=== PATIENT | male | born 1960 | race Caucasian/White ===

== ENCOUNTER → 2017-03-02 | Outpatient (CLI) | payer OTHER ==
[2017-03-02 08:38] LABS: MEAN CORPUSCULAR HEMOGLOBIN 32.5 pg (27.0-33.0); MEAN CORPUSCULAR HGB CONC 35.3 g/dl (32.0-36.5); MEAN CORPUSCULAR VOLUME 91.9 fl (80.0-96.0); RED CELL DISTRIBUTION WIDTH 12.7 % (11.5-14.5); WHITE BLOOD COUNT 4.3 K/mm3 (4.0-10.0)
[2017-03-02 08:45] LABS: ANION GAP 5 MEQ/L (8-16); AST/SGOT 25 U/L (15-37); BLOOD UREA NITROGEN 16 MG/DL (7-18); CARBON DIOXIDE LEVEL 29 MEQ/L (21-32); CHLORIDE LEVEL 107 MEQ/L (98-107); CREATININE FOR GFR 1.26 MG/DL (0.70-1.30); GLOMERULAR FILTRATION RATE > 60.0 (>56); GLUCOSE, FASTING 106 MG/DL (70-105); POTASSIUM SERUM 4.5 MEQ/L (3.5-5.1); SODIUM LEVEL 141 MEQ/L (136-145)
[2017-03-02 08:46] LABS: ALBUMIN 3.8 GM/DL (3.2-5.2); ALBUMIN/GLOBULIN RATIO 1.31 (1.00-1.93); ALKALINE PHOSPHATASE 79 U/L (45-117); ALT/SGPT 41 U/L (12-78); BILIRUBIN,TOTAL 0.7 MG/DL (0.2-1.0); CHOLESTEROL LEVEL 129 MG/DL (<200); TOTAL PROTEIN 6.7 GM/DL (6.4-8.2); TRIGLYCERIDES LEVEL 310 MG/DL (<150)
--- NOTE | 2017-03-02 10:16 | REP ---
Chest two views HISTORY: Annual physical Comparison: 01/07/2016 The lungs are clear. The heart is normal in size. The pulmonary vasculature is normal in appearance. The bony structure is intact. IMPRESSION: No acute disease. Signed by Alistair Siddiqui MD 03/02/2017 10:06 A
--- NOTE | 2017-03-03 07:58 | ECGEPIP ---
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
== END ==
LOC: M LAB 07:33
PROVIDERS: ATTEND Family Medicine
DX: R53.83 Other fatigue (principal); I10 Essential (primary) hypertension; N40.0 Benign prostatic hyperplasia without lower urinary tract symptoms

== ENCOUNTER → 2017-06-04 | Outpatient (CLI) | payer OTHER ==
[~2017-06-04] MED LIST: ALLO15TA GT; CRES10TA32 PO; FLAX10005 PO; GLUCPOW24 PO; LIDOCAINE 2% INJ 100 MG/5 ML SDV (FOR ANES.) As Ordered ONE; LOSA50TA5 PO; MULTCAP11 PO; NS 1,000 ML IV ONE; PANT40TA2 PO; PROBCAP4 PO; PROPOFOL 200 MG/20 ML VIAL As Ordered ONE; SUPECAP14 PO; TESTPOW5 IM
--- NOTE | 2017-06-04 15:07 | ROOR ---
Patient Name: Doron Salinas Procedure Date: 06/04/2017 2:39 PM Date of : 1960 Age: 56 Room: [facility] Gender: Male Note Status: Finalized Procedure: Total Colonoscopy to Cecum Indications: Screening for colorectal malignant neoplasm Providers: Kevin Whittaker MD Referring MD: MISSAEL LOTT MD Requesting Provider: Medicines: Monitored Anesthesia Care Complications: No immediate complications. Procedure: Pre-Anesthesia Assessment: - The heart rate, respiratory rate, oxygen saturations, blood pressure, adequacy of pulmonary ventilation, and response to care were monitored throughout the procedure. The Colonoscope was introduced through the anus and advanced to the cecum, identified by appendiceal orifice and ileocecal valve. The colonoscopy was performed without difficulty. The patient tolerated the procedure well. The quality of the bowel preparation was excellent. Findings: The perianal and digital rectal examinations were normal. Non-bleeding internal hemorrhoids were found during retroflexion. The hemorrhoids were small and Grade I (internal hemorrhoids that do not prolapse). No other significant abnormalities were identified in a careful examination of the remainder of the colon. The exam was otherwise without abnormality on direct and retroflexion views. Impression: - Non-bleeding internal hemorrhoids. - The examination was otherwise normal on direct and retroflexion views. - No specimens collected. - The exam was otherwise normal to the cecum. Recommendation: - Patient has a contact number available for emergencies. The signs and symptoms of potential delayed complications were discussed with the patient. Return to normal activities tomorrow. Written discharge instructions were provided to the patient. - High fiber diet. - Discharge patient to home. - Continue present medications. - Repeat colonoscopy in 10 years for screening purposes. - Return to referring physician. - The findings and recommendations were discussed with the patient's family. Kevin Whittaker MD Kevin Whittaker MD 06/04/2017 3:06:43 PM This report has been signed electronically. Number of Addenda: 0 Note Initiated On: 06/04/2017 2:39 PM Estimated Blood Loss: Estimated blood loss: none.
[2017-06-04 15:45] VITALS: BP 132/87
== END | disposition home or self-care (01) ==
LOC: M OPP 13:36
PROVIDERS: ATTEND Internal Medicine Gastroenterology
DX: Z12.11 Encounter for screening for malignant neoplasm of colon (principal); K64.0 First degree hemorrhoids; Z86.010 Personal history of colon polyps; I10 Essential (primary) hypertension; E78.5 Hyperlipidemia, unspecified; Z79.899 Other long term (current) drug therapy; Z80.3 Family history of malignant neoplasm of breast; Z87.891 Personal history of nicotine dependence

== ENCOUNTER → 2018-01-11 | Outpatient (CLI) | payer OTHER ==
[~2018-01-11] MED LIST changes: -ALLO15TA GT; -CRES10TA32 PO; -FLAX10005 PO; -GLUCPOW24 PO; +ISOVUE-370 76% 100ML VIAL (Q9967) As Ordered; -LIDOCAINE 2% INJ 100 MG/5 ML SDV (FOR ANES.) As Ordered ONE; -LOSA50TA5 PO; -MULTCAP11 PO; -NS 1,000 ML IV ONE; -PANT40TA2 PO; -PROBCAP4 PO; -PROPOFOL 200 MG/20 ML VIAL As Ordered ONE; -SUPECAP14 PO; -TESTPOW5 IM
== END ==
LOC: M RAD 08:17
DX: D44.6 Neoplasm of uncertain behavior of carotid body (principal)
CPT/HCPCS: Q9967

== ENCOUNTER → 2018-02-18 | Outpatient (CLI) | payer OTHER ==
[2018-02-18 08:40] LABS: HEMATOCRIT 39.6 % (42.0-52.0); HEMOGLOBIN 14.2 g/dl (13.5-17.5); MEAN CORPUSCULAR HEMOGLOBIN 31.8 pg (27.0-33.0); MEAN CORPUSCULAR HGB CONC 35.9 g/dl (32.0-36.5); MEAN CORPUSCULAR VOLUME 88.6 fl (80.0-96.0); PLATELET COUNT, AUTOMATED 184 10^3/uL (150-450); RED BLOOD COUNT 4.47 10^6/uL (4.30-6.10); RED CELL DISTRIBUTION WIDTH 12.5 % (11.5-14.5); WHITE BLOOD COUNT 4.3 10^3/uL (4.0-10.0)
[2018-02-18 09:00] LABS: ESTIMATED AVERAGE GLUCOSE 97 MG/DL (60-110)
[2018-02-18 09:08] LABS: ALBUMIN 3.9 GM/DL (3.2-5.2); ALBUMIN/GLOBULIN RATIO 1.34 (1.00-1.93); ALKALINE PHOSPHATASE 82 U/L (45-117); ALT/SGPT 49 U/L (12-78); ANION GAP 6 MEQ/L (8-16); AST/SGOT 30 U/L (7-37); BILIRUBIN,TOTAL 0.7 MG/DL (0.2-1.0); BLOOD UREA NITROGEN 13 MG/DL (7-18); CALCIUM LEVEL 8.6 MG/DL (8.5-10.1); CARBON DIOXIDE LEVEL 27 MEQ/L (21-32); CHLORIDE LEVEL 111 MEQ/L (98-107); CHOLESTEROL LEVEL 118 MG/DL (<200); CHOLESTEROL RISK RATIO 3.806 (<5); CREATININE FOR GFR 1.18 MG/DL (0.70-1.30); GLOMERULAR FILTRATION RATE > 60.0 (>56); GLUCOSE, FASTING 112 MG/DL (70-100); HDL CHOLESTEROL 31 MG/DL (>40); LDL CHOLESTEROL 37.4 MG/DL (<100); NON-HDL-C 87 MG/DL; POTASSIUM SERUM 4.2 MEQ/L (3.5-5.1); SODIUM LEVEL 144 MEQ/L (136-145); THYROID STIMULATING HORMONE 0.969 uIU/ML (0.358-3.740); TOTAL PROTEIN 6.8 GM/DL (6.4-8.2); TRIGLYCERIDES LEVEL 248 MG/DL (<150)
[2018-02-18 09:36] LABS: TESTOSTERONE 289 NG/DL (241-827)
== END ==
LOC: M LAB 07:55
DX: I10 Essential (primary) hypertension (principal)
CPT/HCPCS: 71046

== ENCOUNTER → 2018-09-24 | Outpatient (CLI) | payer OTHER ==
[2018-09-24 12:55] LABS: HEMATOCRIT 39.7 % (42.0-52.0); MEAN CORPUSCULAR HEMOGLOBIN 32.4 pg (27.0-33.0); MEAN CORPUSCULAR HGB CONC 35.3 g/dl (32.0-36.5); MEAN CORPUSCULAR VOLUME 91.9 fl (80.0-96.0); PLATELET COUNT, AUTOMATED 172 10^3/uL (150-450); RED BLOOD COUNT 4.32 10^6/uL (4.30-6.10); RED CELL DISTRIBUTION WIDTH 12.2 % (11.5-14.5); WHITE BLOOD COUNT 5.3 10^3/uL (4.0-10.0)
[2018-09-24 13:31] LABS: ALBUMIN 3.9 GM/DL (3.2-5.2); ALBUMIN/GLOBULIN RATIO 1.39 (1.00-1.93); ALKALINE PHOSPHATASE 86 U/L (45-117); ALT/SGPT 35 U/L (12-78); ANION GAP 5 MEQ/L (8-16); AST/SGOT 19 U/L (7-37); BILIRUBIN,TOTAL 0.6 MG/DL (0.2-1.0); BLOOD UREA NITROGEN 21 MG/DL (7-18); CALCIUM LEVEL 8.4 MG/DL (8.5-10.1); CARBON DIOXIDE LEVEL 30 MEQ/L (21-32); CHLORIDE LEVEL 108 MEQ/L (98-107); CHOLESTEROL LEVEL 114 MG/DL (<200); CHOLESTEROL RISK RATIO 2.923 (<5); CREATININE FOR GFR 1.04 MG/DL (0.70-1.30); GLOMERULAR FILTRATION RATE > 60.0 (>56); GLUCOSE, FASTING 88 MG/DL (70-100); HDL CHOLESTEROL 39 MG/DL (>40); LDL CHOLESTEROL 50 MG/DL (<100); NON-HDL-C 75 MG/DL; POTASSIUM SERUM 4.7 MEQ/L (3.5-5.1); SODIUM LEVEL 143 MEQ/L (136-145); THYROID STIMULATING HORMONE 0.734 uIU/ML (0.358-3.740); TOTAL PROTEIN 6.7 GM/DL (6.4-8.2); TRIGLYCERIDES LEVEL 126 MG/DL (<150)
[2018-09-24 13:32] LABS: TESTOSTERONE 384 NG/DL (241-827); TOTAL 25(OH) VITAMIN D 52.9 NG/ML (30.0-100.0)
[2018-09-24 13:54] LABS: ESTIMATED AVERAGE GLUCOSE 100 MG/DL (60-110); HEMOGLOBIN A1c 5.1 %
== END ==
LOC: M LAB 12:08
DX: I10 Essential (primary) hypertension (principal)
CPT/HCPCS: 84403

== ENCOUNTER → 2019-02-13 | Outpatient (CLI) | payer OTHER ==
[~2019-02-13] MED LIST changes: +ALLO300T2 GT; +CRES10TA PO; +FLAX10005 PO; +GLUCPOW24 PO; -ISOVUE-370 76% 100ML VIAL (Q9967) As Ordered; +LOSA50TA5 PO; +MULTCAP11 PO; +PANT40TA3 PO; +PROBCAP4 PO; +SUPECAP14 PO; +TESTPOW5 IM
[2019-02-13 11:29] LABS: HEMATOCRIT 41.9 % (42.0-52.0); MEAN CORPUSCULAR HEMOGLOBIN 32.1 pg (27.0-33.0); MEAN CORPUSCULAR HGB CONC 35.8 g/dl (32.0-36.5); MEAN CORPUSCULAR VOLUME 89.5 fl (80.0-96.0); PLATELET COUNT, AUTOMATED 190 10^3/uL (150-450); RED BLOOD COUNT 4.68 10^6/uL (4.30-6.10)
[2019-02-13 12:05] LABS: ALBUMIN 4.2 GM/DL (3.2-5.2); ALT/SGPT 38 U/L (12-78); BILIRUBIN,TOTAL 0.7 MG/DL (0.2-1.0); BLOOD UREA NITROGEN 21 MG/DL (7-18); CALCIUM LEVEL 8.3 MG/DL (8.5-10.1); CARBON DIOXIDE LEVEL 29 MEQ/L (21-32); CHLORIDE LEVEL 108 MEQ/L (98-107); CHOLESTEROL LEVEL 126 MG/DL (<200); CREATININE FOR GFR 1.11 MG/DL (0.70-1.30); GLOMERULAR FILTRATION RATE > 60.0 (>56); GLUCOSE, FASTING 94 MG/DL (70-100); HDL CHOLESTEROL 40 MG/DL (>40); LDL CHOLESTEROL 62 MG/DL (<100); NON-HDL-C 86 MG/DL; POTASSIUM SERUM 4.6 MEQ/L (3.5-5.1); SODIUM LEVEL 142 MEQ/L (136-145); TESTOSTERONE 395 NG/DL (241-827); THYROID STIMULATING HORMONE 0.901 uIU/ML (0.358-3.740); TOTAL PROTEIN 7.1 GM/DL (6.4-8.2); TRIGLYCERIDES LEVEL 122 MG/DL (<150)
[2019-02-13 12:23] LABS: HEMOGLOBIN A1c 5.1 %
--- NOTE | 2019-02-13 20:45 | ECGEPIP ---
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 Otherwise normal tracing No change from 02/18/18 Electronically Signed On 02-13-2019 20:44:57 EDT by Obi Quiroga
--- NOTE | 2019-02-14 02:31 | REP ---
Clinical: Primary hypertension . Comparison: 02/18/2018 . Technique: PA and lateral. Findings: The mediastinum and cardiac silhouette are normal. The lung gonsalez demonstrate chronic stable changes without acute consolidation, effusion, or pneumothorax. The skeletal structures are intact and normal. Impression: 1. No acute cardiopulmonary process. Electronically Signed by Sherwin Josue MD 02/14/2019 02:23 A
[2019-02-15 00:08] LABS: Lyme Disease IgG/IgM Antibodie <0.91 ISR (0.00-0.90); Lyme Disease IgM Ab Quantitati <0.80 index (0.00-0.79)
== END ==
LOC: M LAB 10:35
PROVIDERS: ATTEND Family Medicine
DX: I10 Essential (primary) hypertension (principal); E03.9 Hypothyroidism, unspecified

== ENCOUNTER → 2019-08-26 | Outpatient (CLI) | payer OTHER ==
[2019-08-29 00:10] LABS: BABESIOSIS LEVEL IGG <1:10 (Neg:<1:10); BABESIOSIS LEVEL IGM <1:10 (Neg:<1:10); E CHAFFEENSIS IgG TITER Negative (Neg:<1:64); E CHAFFEENSIS IgM TITER Negative (Neg:<1:20); HUMAN GRANULCYTIC EHRLIC IgG Negative (Neg:<1:64); HUMAN GRANULCYTIC EHRLIC IgM Negative (Neg:<1:20); Lyme Disease IgG/IgM Antibodie <0.91 ISR (0.00-0.90); Lyme Disease IgM Ab Quantitati <0.80 index (0.00-0.79)
== END ==
LOC: M LABDRWAD 10:07
PROVIDERS: ATTEND Dermatology
DX: S80.261A Insect bite (nonvenomous), right knee, initial encounter (principal); W57.XXXA Bitten or stung by nonvenomous insect and other nonvenomous arthropods, initial encounter; Y92.9 Unspecified place or not applicable

== ENCOUNTER → 2019-10-15 | Outpatient (REF) | payer OTHER ==
[2019-10-18 00:07] LABS: BABESIOSIS LEVEL IGG <1:10 (Neg:<1:10); BABESIOSIS LEVEL IGM <1:10 (Neg:<1:10); E CHAFFEENSIS IgG TITER Negative (Neg:<1:64); E CHAFFEENSIS IgM TITER Negative (Neg:<1:20); HUMAN GRANULCYTIC EHRLIC IgG Negative (Neg:<1:64); HUMAN GRANULCYTIC EHRLIC IgM Negative (Neg:<1:20); Lyme Disease IgG/IgM Antibodie <0.91 ISR (0.00-0.90); Lyme Disease IgM Ab Quantitati <0.80 index (0.00-0.79)
== END ==
LOC: M LABDRWAD 13:06
PROVIDERS: ATTEND Dermatology
DX: S80.261A Insect bite (nonvenomous), right knee, initial encounter (principal); Z87.2 Personal history of diseases of the skin and subcutaneous tissue; D22.5 Melanocytic nevi of trunk; B36.0 Pityriasis versicolor; L21.8 Other seborrheic dermatitis; W57.XXXA Bitten or stung by nonvenomous insect and other nonvenomous arthropods, initial encounter; Y92.9 Unspecified place or not applicable

== ENCOUNTER → 2020-04-03 | Outpatient (CLI) | payer OTHER ==
[2020-04-03 10:06] LABS: HEMATOCRIT 41.1 % (42.0-52.0); HEMOGLOBIN 14.7 g/dl (13.5-17.5); MEAN CORPUSCULAR HEMOGLOBIN 32.4 pg (27.0-33.0); MEAN CORPUSCULAR HGB CONC 35.8 g/dl (32.0-36.5); MEAN CORPUSCULAR VOLUME 90.5 fl (80.0-96.0); PLATELET COUNT, AUTOMATED 170 10^3/uL (150-450); RED BLOOD COUNT 4.54 10^6/uL (4.30-6.10); WHITE BLOOD COUNT 4.4 10^3/uL (4.0-10.0)
[2020-04-03 10:23] LABS: HEMOGLOBIN A1c 5.1 %
[2020-04-03 10:36] LABS: ALBUMIN 3.9 GM/DL (3.2-5.2); ALT/SGPT 41 U/L (12-78); BLOOD UREA NITROGEN 21 MG/DL (7-18); CALCIUM LEVEL 8.4 MG/DL (8.5-10.1); CARBON DIOXIDE LEVEL 27 MEQ/L (21-32); CHLORIDE LEVEL 107 MEQ/L (98-107); CHOLESTEROL LEVEL 129 MG/DL (<200); CHOLESTEROL RISK RATIO 3.307 (<5); CREATININE FOR GFR 1.04 MG/DL (0.70-1.30); GLOMERULAR FILTRATION RATE > 60.0 (>56); GLUCOSE, FASTING 104 MG/DL (70-100); HDL CHOLESTEROL 39 MG/DL (>40); LDL CHOLESTEROL 62 MG/DL (<100); NON-HDL-C 90 MG/DL; POTASSIUM SERUM 4.1 MEQ/L (3.5-5.1); PROSTATIC SPECIFIC AG MONITOR 1.02 NG/ML (< 4.00); SODIUM LEVEL 141 MEQ/L (136-145); THYROID STIMULATING HORMONE 0.601 uIU/ML (0.358-3.740); THYROXINE (T4) 7.7 UG/DL (4.5-12.0); TRIGLYCERIDES LEVEL 139 MG/DL (<150)
[2020-04-05 10:40] LABS: TESTOSTERONE 365 NG/DL (241-827); TOTAL 25(OH) VITAMIN D 51.2 NG/ML (30.0-100.0); TOTAL T3 98.1 NG/DL (60.0-181.0)
== END ==
LOC: M LAB 09:28
PROVIDERS: ATTEND Family Medicine

== ENCOUNTER → 2020-05-21 | Outpatient (CLI) | payer OTHER ==
[~2020-05-21] MED LIST changes: +PANT40TA29 PO; -PANT40TA3 PO
== END ==
LOC: M RAD 20:23
PROVIDERS: ATTEND Physician Assistant
DX: T16.2XXA Foreign body in left ear, initial encounter (principal)

== ENCOUNTER → 2020-06-12 | Outpatient (CLI) | payer OTHER ==
[2020-07-10 09:53] LABS: BASO % 0.6 % (0.0-1.0); EOS # 0.1 10^3/uL (0.0-0.5); EOS % 1.7 % (0.0-3.0); HEMATOCRIT 42.8 % (42.0-52.0); HEMOGLOBIN 15.3 g/dl (13.5-17.5); LYMPH # 1.5 10^3/uL (1.5-5.0); LYMPH % 24.2 % (24.0-44.0); MEAN CORPUSCULAR HEMOGLOBIN 32.5 pg (27.0-33.0); MEAN CORPUSCULAR HGB CONC 35.7 g/dl (32.0-36.5); MEAN CORPUSCULAR VOLUME 90.9 fl (80.0-96.0); MONO # 0.6 10^3/uL (0.0-0.8); PLATELET COUNT, AUTOMATED 187 10^3/uL (150-450); RED BLOOD COUNT 4.71 10^6/uL (4.30-6.10); WHITE BLOOD COUNT 6.3 10^3/uL (4.0-10.0)
[2020-07-19 09:04] LABS: CARBON DIOXIDE LEVEL 33 MEQ/L (21-32); CHLORIDE LEVEL 105 MEQ/L (98-107); CREATININE FOR GFR 1.29 MG/DL (0.70-1.30); GLOMERULAR FILTRATION RATE > 60.0 (>56); SODIUM LEVEL 140 MEQ/L (136-145); TROPONIN I < 0.02 NG/ML (< 0.10)
== END ==
LOC: M LAB 14:20
PROVIDERS: ATTEND Physician Assistant
DX: R07.89 Other chest pain (principal)

== ENCOUNTER → 2021-04-06 | Outpatient (CLI) | payer OTHER ==
[2021-04-06 14:20] LABS: HEMATOCRIT 41.4 % (42.0-52.0); HEMOGLOBIN 14.7 g/dl (13.5-17.5); MEAN CORPUSCULAR HEMOGLOBIN 32.3 pg (27.0-33.0); MEAN CORPUSCULAR HGB CONC 35.5 g/dl (32.0-36.5); PLATELET COUNT, AUTOMATED 179 10^3/uL (150-450); RED BLOOD COUNT 4.55 10^6/uL (4.30-6.10); WHITE BLOOD COUNT 6.3 10^3/uL (4.0-10.0)
--- NOTE | 2021-04-06 14:31 | REP ---
INDICATION: IDIOPATHIC HYPERSOMNIA WITH LONG SLEEP TIME-LABS AND EKG 1ST. COMPARISON: 820 FINDINGS: The superior mediastinal structures are midline. The cardiac silhouette is unremarkable in size, shape, and position. The diaphragmatic surfaces of the lungs are regular, and the costophrenic angles are clear. The pulmonary gonsalez are clear. The imaged osseous structures are intact. IMPRESSION: There is no acute cardiopulmonary disease. <Electronically signed by Moises Anna > 04/06/21 [id number]
[2021-04-06 14:58] LABS: ALT/SGPT 31 U/L (12-78); BILIRUBIN,TOTAL 0.8 MG/DL (0.2-1.0); BLOOD UREA NITROGEN 20 MG/DL (7-18); CALCIUM LEVEL 9.1 MG/DL (8.8-10.2); CARBON DIOXIDE LEVEL 30 MEQ/L (21-32); CHLORIDE LEVEL 105 MEQ/L (98-107); CHOLESTEROL LEVEL 138 MG/DL (<200); CHOLESTEROL RISK RATIO 3.538 (<5); CREATININE FOR GFR 1.04 MG/DL (0.70-1.30); GLOMERULAR FILTRATION RATE > 60.0 (>49); GLUCOSE, FASTING 93 MG/DL (70-100); HDL CHOLESTEROL 39 MG/DL (>40); LDL CHOLESTEROL 49 MG/DL (<100); NON-HDL-C 99 MG/DL; PROSTATIC SPECIFIC AG MONITOR 0.76 NG/ML (< 4.00); SODIUM LEVEL 139 MEQ/L (136-145); TESTOSTERONE 401 NG/DL (241-827); THYROID STIMULATING HORMONE 0.811 uIU/ML (0.358-3.740); TRIGLYCERIDES LEVEL 250 MG/DL (<150)
--- NOTE | 2021-04-09 00:22 | ECGEPIP ---
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
== END ==
LOC: M LAB 13:33
PROVIDERS: ATTEND Family Medicine
DX: I10 Essential (primary) hypertension (principal); E11.9 Type 2 diabetes mellitus without complications; R53.83 Other fatigue; E03.9 Hypothyroidism, unspecified

== ENCOUNTER 2021-11-24 18:37 | Emergency (ER) | payer OTHER ==
[~2021-11-24] VITALS: Ht 177.8 cm; Wt 86.4 kg
[~2021-11-24 18:37] MED LIST changes: -ALLO300T2 GT; +ALLO300T2 PO
[2021-11-24] MEDS ORDERED: SILD100T (19:05)
[2021-11-24] MEDS ORDERED: PANT20TA6 (19:05)
[2021-11-24] MEDS ORDERED: LOSA50TA28 (19:05)
[2021-11-24] MEDS ORDERED: ACETAMINOPHEN 325 MG TAB PO ONE (22:35)
[2021-11-24] MEDS ORDERED: DERMABOND TOPICAL SKIN ADHESIVE TOP ONE (22:55)
[2021-11-24 23:09] VITALS: BP 132/83
[2021-11-24] MEDS ORDERED: BOOSTRIX/ADACEL VACCINE (DIPHTH/PERTUSS/ACELL/TETANUS) 0.5ML SYR IM ONE (23:10)
== END 2021-11-25 00:02 | disposition home or self-care (01) ==
LOC: M ED 18:37
DX: S09.90XA Unspecified injury of head, initial encounter (principal); S01.91XA Laceration without foreign body of unspecified part of head, initial encounter; S60.450A Superficial foreign body of right index finger, initial encounter; W00.9XXA Unspecified fall due to ice and snow, initial encounter; Y92.009 Unspecified place in unspecified non-institutional (private) residence as the place of occurrence of the external cause; Y93.9 Activity, unspecified; Y99.9 Unspecified external cause status; M47.812 Spondylosis without myelopathy or radiculopathy, cervical region; Z79.899 Other long term (current) drug therapy

== ENCOUNTER → 2022-02-02 | Outpatient (CLI) | payer BC ==
[~2022-02-02] MED LIST changes: +LOSA50TA28; +PANT20TA6; +SILD100T
[2022-02-02 12:32] LABS: HEMATOCRIT 43.4 % (42.0-52.0); HEMOGLOBIN 15.6 g/dl (13.5-17.5); MEAN CORPUSCULAR HEMOGLOBIN 32.6 pg (27.0-33.0); MEAN CORPUSCULAR HGB CONC 35.9 g/dl (32.0-36.5); MEAN CORPUSCULAR VOLUME 90.6 fl (80.0-96.0); PLATELET COUNT, AUTOMATED 184 10^3/uL (150-450); RED BLOOD COUNT 4.79 10^6/uL (4.30-6.10)
[2022-02-02 14:38] LABS: ALBUMIN 4.2 GM/DL (3.2-5.2); ALT/SGPT 48 U/L (12-78); BILIRUBIN,TOTAL 0.7 MG/DL (0.2-1.0); BLOOD UREA NITROGEN 21 MG/DL (7-18); CALCIUM LEVEL 8.7 MG/DL (8.8-10.2); CARBON DIOXIDE LEVEL 28 MEQ/L (21-32); CHLORIDE LEVEL 107 MEQ/L (98-107); CHOLESTEROL LEVEL 126 MG/DL (<200); CHOLESTEROL RISK RATIO 3.705 (<5); CREATININE FOR GFR 1.24 MG/DL (0.70-1.30); GLOMERULAR FILTRATION RATE > 60.0 (>49); GLUCOSE, FASTING 106 MG/DL (70-100); HDL CHOLESTEROL 34 MG/DL (>40); LDL CHOLESTEROL 35 MG/DL (<100); NON-HDL-C 92 MG/DL; POTASSIUM SERUM 4.6 MEQ/L (3.5-5.1); SODIUM LEVEL 139 MEQ/L (136-145); TESTOSTERONE 372 NG/DL (241-827); TOTAL PROTEIN 7.1 GM/DL (6.4-8.2); TRIGLYCERIDES LEVEL 287 MG/DL (<150)
== END ==
LOC: M ADAMS 08:52
PROVIDERS: ATTEND Family Medicine
DX: I10 Essential (primary) hypertension (principal); R53.83 Other fatigue; E03.9 Hypothyroidism, unspecified
CPT/HCPCS: 36415; 80053; 80061; 83036; 84403; 84443; 85027; G0103

== ENCOUNTER → 2022-02-06 | Outpatient (CLI) | payer BC | LOC: M RAD 13:33 | PROVIDERS: ATTEND Family Medicine | DX: I10 Essential (primary) hypertension (principal); R53.83 Other fatigue; E03.9 Hypothyroidism, unspecified; I44.0 Atrioventricular block, first degree ==

== ENCOUNTER → 2022-10-16 | Outpatient (REF) | payer BC ==
[2022-10-16 14:57] LABS: BILIRUBIN,DIRECT 0.2 MG/DL (<0.4)
[2022-10-16 14:58] LABS: ALBUMIN 3.9 G/DL (3.2-5.2); BILIRUBIN,TOTAL 0.6 MG/DL (0.3-1.2); CHOLESTEROL RISK RATIO 4.04 (<5); HDL CHOLESTEROL 31.4 MG/DL (>40); LDL CHOLESTEROL 29.2 MG/DL (<100); TOTAL PROTEIN 6.4 G/DL (5.7-8.2)
[2022-10-16 16:17] LABS: HEMOGLOBIN A1c 4.7 % (4.0-6.0)
== END ==
LOC: M LABDRWAD 13:36
PROVIDERS: ATTEND Internal Medicine Cardiovascular Disease
DX: E78.2 Mixed hyperlipidemia (principal); I50.9 Heart failure, unspecified; R00.2 Palpitations; Z79.899 Other long term (current) drug therapy

== ENCOUNTER → 2022-10-16 | Outpatient (CLI) | payer BC ==
[2022-10-16 13:50] LABS: HEMATOCRIT 42.3 % (42.0-52.0); HEMOGLOBIN 14.4 g/dl (13.5-17.5); MEAN CORPUSCULAR HEMOGLOBIN 32.1 pg (27.0-33.0); MEAN CORPUSCULAR VOLUME 94.4 fl (80.0-96.0); PLATELET COUNT, AUTOMATED 183 10^3/uL (150-450); RED BLOOD COUNT 4.48 10^6/uL (4.30-6.10); WHITE BLOOD COUNT 4.9 10^3/uL (4.0-10.0)
[2022-10-16 14:10] LABS: THYROID STIMULATING HORMONE 1.259 uIU/ML (0.55-4.78); TOTAL 25(OH) VITAMIN D 38.6 NG/ML (20.0-100.0)
== END ==
LOC: M LABDRWAD 07:38
PROVIDERS: ATTEND Family Medicine
DX: I10 Essential (primary) hypertension (principal); R53.83 Other fatigue; E03.9 Hypothyroidism, unspecified
CPT/HCPCS: 36415; 82306; 84403; 84443; 85027; G0103

== ENCOUNTER → 2022-12-04 | Outpatient (CLI) | payer BC | LOC: M CARPUL 12:48 | PROVIDERS: ATTEND Physician Assistant | DX: R07.9 Chest pain, unspecified (principal) ==

== ENCOUNTER → 2023-01-03 | Outpatient (REF) | payer BC ==
[2023-01-03 14:57] LABS: CHOLESTEROL RISK RATIO 4.45 (<5); HDL CHOLESTEROL 49.6 MG/DL (>40); LDL CHOLESTEROL 151.4 MG/DL (<100)
[2023-01-04 08:09] LABS: LDL DIRECT 159 mg/dL (0-99)
== END ==
LOC: M LABDRWAD 12:40
PROVIDERS: ATTEND Internal Medicine Cardiovascular Disease
DX: E78.1 Pure hyperglyceridemia (principal)

== ENCOUNTER → 2023-02-01 | Outpatient (CLI) | payer BC ==
[~2023-02-01] MED LIST changes: +ISOVUE-370 76% 100ML VIAL As Ordered ONE
== END ==
LOC: M RAD 13:18
PROVIDERS: ATTEND Family Medicine
DX: H53.2 Diplopia (principal)
CPT/HCPCS: 70470; Q9967

== ENCOUNTER → 2023-03-29 | Outpatient (REF) | payer BC ==
[~2023-03-29] MED LIST changes: -ISOVUE-370 76% 100ML VIAL As Ordered ONE
[2023-03-29 14:40] LABS: THYROID STIMULATING HORMONE 1.375 uIU/ML (0.55-4.78)
[2023-03-29 14:41] LABS: ALBUMIN 4.1 G/DL (3.2-5.2); BILIRUBIN,TOTAL 0.6 MG/DL (0.3-1.2); CALCIUM LEVEL 9.1 MG/DL (8.3-10.6); CREATININE FOR GFR 1.43 MG/DL (0.70-1.30); GLOMERULAR FILTRATION RATE 53.3 (>49); POTASSIUM SERUM 4.7 MMOL/L (3.5-5.1); TOTAL PROTEIN 6.5 G/DL (5.7-8.2)
[2023-03-29 14:49] LABS: HEMATOCRIT 43.5 % (42.0-52.0); HEMOGLOBIN 14.8 g/dl (13.5-17.5); MEAN CORPUSCULAR HEMOGLOBIN 32.2 pg (27.0-33.0); MEAN CORPUSCULAR VOLUME 94.8 fl (80.0-96.0); PLATELET COUNT, AUTOMATED 212 10^3/uL (150-450); RED BLOOD COUNT 4.59 10^6/uL (4.30-6.10); WHITE BLOOD COUNT 4.6 10^3/uL (4.0-10.0)
[2023-03-30 08:28] LABS: LDL CHOLESTEROL 123.8 MG/DL (<100)
== END ==
LOC: M LABDRWAD 13:04
PROVIDERS: ATTEND Family Medicine
DX: I10 Essential (primary) hypertension (principal); E03.9 Hypothyroidism, unspecified; R53.83 Other fatigue
CPT/HCPCS: 36415; 80053; 80061; 83036; 84403; 84443; 85027; G0103

== ENCOUNTER → 2023-10-09 | Outpatient (REF) | payer BC ==
[2023-10-09 14:32] LABS: HEMATOCRIT 41.7 % (42.0-52.0); HEMOGLOBIN 14.4 g/dl (13.5-17.5); MEAN CORPUSCULAR HEMOGLOBIN 31.9 pg (27.0-33.0); MEAN CORPUSCULAR HGB CONC 34.5 g/dl (32.0-36.5); MEAN CORPUSCULAR VOLUME 92.5 fl (80.0-96.0); PLATELET COUNT, AUTOMATED 266 10^3/uL (150-450); RED BLOOD COUNT 4.51 10^6/uL (4.30-6.10)
[2023-10-09 14:38] LABS: ALBUMIN 4.2 G/DL (3.2-5.2); ALKALINE PHOSPHATASE 44 U/L (46-116); ALT/SGPT 26 U/L (7.0-40); AST/SGOT 17 U/L (<34); BILIRUBIN,TOTAL 0.6 MG/DL (0.3-1.2); BLOOD UREA NITROGEN 21 MG/DL (9-23); CALCIUM LEVEL 9.3 MG/DL (8.3-10.6); CARBON DIOXIDE LEVEL 28 MMOL/L (20-31); CHLORIDE LEVEL 106 MMOL/L (98-107); CHOLESTEROL LEVEL 228 MG/DL (<200); CHOLESTEROL RISK RATIO 5.22 (<5); CREATININE FOR GFR 1.23 MG/DL (0.70-1.30); GLOMERULAR FILTRATION RATE > 60.0 (>49); GLUCOSE, FASTING 96 MG/DL (74-106); HDL CHOLESTEROL 43.6 MG/DL (>40); LDL CHOLESTEROL 167.4 MG/DL (<100); NON-HDL-C 184.4 MG/DL; POTASSIUM SERUM 4.4 MMOL/L (3.5-5.1); SODIUM LEVEL 141 MMOL/L (136-145); THYROID STIMULATING HORMONE 0.622 uIU/ML (0.55-4.78); TOTAL PROTEIN 6.9 G/DL (5.7-8.2); TRIGLYCERIDES LEVEL 85 MG/DL (<150)
[2023-10-09 14:39] LABS: TESTOSTERONE 327 NG/DL (241-827)
[2023-10-09 14:40] LABS: HEMOGLOBIN A1c 4.8 % (4.0-6.0)
== END ==
LOC: M LABDRWAD 12:38
PROVIDERS: ATTEND Family Medicine
DX: I10 Essential (primary) hypertension (principal); R53.83 Other fatigue; E03.9 Hypothyroidism, unspecified
CPT/HCPCS: 36415; 80053; 80061; 83036; 84403; 84443; 85027; G0103

== ENCOUNTER 2024-01-19 11:17 | Emergency (ER) | payer BC ==
[~2024-01-19] VITALS: Ht 177.8 cm; Wt 90.9 kg
[~2024-01-19 11:17] MED LIST changes: -LOSA50TA28; +LOSA50TA28 PO; -PANT20TA6; +PANT20TA6 PO
[2024-01-19] MEDS ORDERED: FENO48TA8 PO (11:28)
[2024-01-19] MEDS ORDERED: TIZA10TA PO (11:28)
[2024-01-19] MEDS ORDERED: MELO7.5T35 PO (11:28)
[2024-01-19 12:54] LABS: BASO # 0.1 10^3/uL (0.0-0.2); BASO % 0.7 % (0.0-1.0); EOS # 0.1 10^3/uL (0.0-0.5); EOS % 1.7 % (0.0-3.0); HEMATOCRIT 42.4 % (42.0-52.0); HEMOGLOBIN 15.2 g/dl (13.5-17.5); LYMPH # 2.3 10^3/uL (1.5-5.0); LYMPH % 30.9 % (24.0-44.0); MEAN CORPUSCULAR HEMOGLOBIN 32.2 pg (27.0-33.0); MEAN CORPUSCULAR HGB CONC 35.8 g/dl (32.0-36.5); MEAN CORPUSCULAR VOLUME 89.8 fl (80.0-96.0); MONO # 0.7 10^3/uL (0.0-0.8); MONO % 8.6 % (2.0-8.0); NEUTROPHILS # 4.3 10^3/uL (1.5-8.5); NEUTROPHILS % 56.9 % (36.0-66.0); PLATELET COUNT, AUTOMATED 209 10^3/uL (150-450); RED BLOOD COUNT 4.72 10^6/uL (4.30-6.10); WHITE BLOOD COUNT 7.5 10^3/uL (4.0-10.0)
[2024-01-19 13:10] LABS: INR 0.92; PARTIAL THROMBOPLASTIN TIME 24.4 SECONDS (24.8-34.2); PROTHROMBIN TIME 12.1 SECONDS (12.5-14.5)
[2024-01-19 13:17] LABS: CK-MB VALUE MASS < 1.0 NG/ML (<3.6)
[2024-01-19 13:19] LABS: ALBUMIN 4.2 G/DL (3.2-5.2); ALKALINE PHOSPHATASE 66 U/L (46-116); ALT/SGPT 36 U/L (7.0-40); AST/SGOT 19 U/L (<34); BILIRUBIN,DIRECT 0.2 MG/DL (<0.4); BILIRUBIN,TOTAL 0.5 MG/DL (0.3-1.2); BLOOD UREA NITROGEN 28 MG/DL (9-23); CARBON DIOXIDE LEVEL 29 MMOL/L (20-31); CHLORIDE LEVEL 106 MMOL/L (98-107); CPK CREATINE PHOSPHOKINASE 128 U/L (46-171); CREATININE FOR GFR 1.25 MG/DL (0.70-1.30); GLOMERULAR FILTRATION RATE > 60.0 (>49); GLUCOSE, FASTING 82 MG/DL (74-106); MB/CK RELATIVE INDEX 0.78 (< OR =4); POTASSIUM SERUM 4.6 MMOL/L (3.5-5.1); SODIUM LEVEL 140 MMOL/L (136-145); TOTAL PROTEIN 6.9 G/DL (5.7-8.2)
[2024-01-19 13:21] LABS: THYROID STIMULATING HORMONE 0.888 uIU/ML (0.55-4.78)
[2024-01-19] MEDS ORDERED: ISOVUE-370 76% 100ML VIAL As Ordered ONE (13:28)
[2024-01-19] MEDS: MAALOX 30 ML SUSP *UDC PO ONE (14:15)
[2024-01-19] MEDS ORDERED: ROSU5TAB5 PO (15:13)
[2024-01-19] MEDS ORDERED: HOME MED LIST COMPLETE! XX SCH (15:15)
[2024-01-19 16:06] VITALS: BP 156/96; TEMP 97.6; O2SAT 99
== END 2024-01-19 16:11 | disposition home or self-care (01) ==
LOC: M ED 11:17
DX: K21.9 Gastro-esophageal reflux disease without esophagitis (principal); K57.30 Diverticulosis of large intestine without perforation or abscess without bleeding; I71.40 Abdominal aortic aneurysm, without rupture, unspecified; R73.09 Other abnormal glucose; I10 Essential (primary) hypertension; Z79.899 Other long term (current) drug therapy
CPT/HCPCS: 71046; 71275; 74174; 80048; 80076; 82550; 82553; 83880; 84439; 84443; 85025; 85379; 85610; 85730; 87486; 87581; 87633; 87798; 93005; 93041; 94760; 99285; Q9967

== ENCOUNTER → 2024-01-29 | Outpatient (REF) | payer BC ==
[~2024-01-29] MED LIST changes: +FENO48TA8 PO; +MELO7.5T35 PO; +ROSU5TAB5 PO; +TIZA10TA PO
[2024-01-29 14:31] LABS: HEMATOCRIT 43.8 % (42.0-52.0); HEMOGLOBIN 15.2 g/dl (13.5-17.5); MEAN CORPUSCULAR HEMOGLOBIN 32.3 pg (27.0-33.0); MEAN CORPUSCULAR HGB CONC 34.7 g/dl (32.0-36.5); PLATELET COUNT, AUTOMATED 217 10^3/uL (150-450); RED BLOOD COUNT 4.71 10^6/uL (4.30-6.10); WHITE BLOOD COUNT 5.1 10^3/uL (4.0-10.0)
[2024-01-29 14:35] LABS: PSA SCREENING 0.97 NG/ML (< 4.00)
[2024-01-29 14:37] LABS: ALBUMIN 4.3 G/DL (3.2-5.2); ALKALINE PHOSPHATASE 66 U/L (46-116); ALT/SGPT 49 U/L (7.0-40); AST/SGOT 29 U/L (<34); BILIRUBIN,TOTAL 0.7 MG/DL (0.3-1.2); BLOOD UREA NITROGEN 18 MG/DL (9-23); CALCIUM LEVEL 9.4 MG/DL (8.3-10.6); CARBON DIOXIDE LEVEL 29 MMOL/L (20-31); CHLORIDE LEVEL 111 MMOL/L (98-107); CHOLESTEROL LEVEL 160 MG/DL (<200); CHOLESTEROL RISK RATIO 4.33 (<5); CREATININE FOR GFR 1.26 MG/DL (0.70-1.30); GLOMERULAR FILTRATION RATE > 60.0 (>49); GLUCOSE, FASTING 98 MG/DL (74-106); HDL CHOLESTEROL 36.9 MG/DL (>40); LDL CHOLESTEROL 71.9 MG/DL (<100); NON-HDL-C 123.1 MG/DL; POTASSIUM SERUM 4.4 MMOL/L (3.5-5.1); SODIUM LEVEL 137 MMOL/L (136-145); TOTAL PROTEIN 6.9 G/DL (5.7-8.2); TRIGLYCERIDES LEVEL 256 MG/DL (<150)
[2024-01-29 14:40] LABS: HEMOGLOBIN A1c 5.2 % (4.0-6.0); TESTOSTERONE 478 NG/DL (241-827); TOTAL 25(OH) VITAMIN D 54.8 NG/ML (20.0-100.0)
== END ==
LOC: M LABDRWAD 13:41
PROVIDERS: ATTEND Family Medicine
DX: I10 Essential (primary) hypertension (principal); E03.9 Hypothyroidism, unspecified; R53.83 Other fatigue

== ENCOUNTER → 2024-01-29 | Outpatient (REF) | payer BC ==
[2024-01-29 14:35] LABS: ALBUMIN 4.2 G/DL (3.2-5.2); BILIRUBIN,DIRECT 0.3 MG/DL (<0.4); BILIRUBIN,TOTAL 0.7 MG/DL (0.3-1.2); CHOLESTEROL RISK RATIO 4.38 (<5); HDL CHOLESTEROL 36.5 MG/DL (>40); LDL CHOLESTEROL 72.7 MG/DL (<100); NON-HDL-C 123.5 MG/DL; TOTAL PROTEIN 6.8 G/DL (5.7-8.2)
== END ==
LOC: M LABDRWAD 13:39
PROVIDERS: ATTEND Internal Medicine Cardiovascular Disease
DX: E78.2 Mixed hyperlipidemia (principal)

== ENCOUNTER → 2024-06-25 | Outpatient (CLI) | payer BC ==
[~2024-06-25] MED LIST changes: +ROSU5TAB40 PO; -ROSU5TAB5 PO
[2024-06-25 10:11] LABS: INR 1.03; PROTHROMBIN TIME 13.2 SECONDS (12.5-14.5)
[2024-06-25 10:53] LABS: IRON (FE) 123 UG/DL (65-175)
[2024-06-25 10:54] LABS: ALBUMIN 4.2 G/DL (3.2-5.2); ALKALINE PHOSPHATASE 72 U/L (46-116); ALT/SGPT 40 U/L (7.0-40); AST/SGOT 23 U/L (<34); BILIRUBIN,DIRECT 0.2 MG/DL (<0.4); BILIRUBIN,TOTAL 0.7 MG/DL (0.3-1.2); BLOOD UREA NITROGEN 20 MG/DL (9-23); CALCIUM LEVEL 9.4 MG/DL (8.3-10.6); CARBON DIOXIDE LEVEL 28 MMOL/L (20-31); CHLORIDE LEVEL 107 MMOL/L (98-107); CREATININE FOR GFR 1.26 MG/DL (0.70-1.30); GLOMERULAR FILTRATION RATE > 60.0 (>49); GLUCOSE, FASTING 91 MG/DL (74-106); PERCENT SATURATION 36.4 % (19.7-50.0); POTASSIUM SERUM 4.3 MMOL/L (3.5-5.1); SODIUM LEVEL 139 MMOL/L (136-145); TOTAL IRON BINDING CAPACITY 338 UG/DL (250-425); TOTAL PROTEIN 7.3 G/DL (5.7-8.2)
[2024-06-25 10:58] LABS: THYROID STIMULATING HORMONE 0.588 uIU/ML (0.55-4.78)
[2024-06-25 10:59] LABS: FREE T4 1.27 NG/DL (0.89-1.76)
[2024-06-25 11:00] LABS: HEPATITIS B SURFACE ANTIBODY NEGATIVE (POSITIVE)
[2024-06-25 11:12] LABS: HEPATITIS B SURFACE ANTIGEN NEGATIVE (NEGATIVE)
[2024-06-25 11:31] LABS: HEPATITIS B CORE ANTIBODY IGM NEGATIVE (NEGATIVE); HEPATITIS C VIRUS ABY INDEX 0.03 INDEX (<0.8)
[2024-06-26 11:33] LABS: ALPHA 1 ANTITRYPSIN 142 mg/dL (83-199)
[2024-06-26 12:48] LABS: ANA SCREEN, IFA NEGATIVE (NEGATIVE)
[2024-06-26 13:54] LABS: HEPATITIS A IgG TOTAL REACTIVE (NON-REACTIVE)
[2024-06-27 02:02] LABS: TISSUE TRANSGLUTAMINASE IgA < 1.0 U/mL (<15.0); TISSUE TRANSGLUTAMINASE IgG < 1.0 U/mL (<15.0); UNITSIGA FOR GLIADIN IGA 1.2 U/mL (<15.0); UNITSIGG FOR GLIADIN IGG < 1.0 U/mL (<15.0)
== END ==
LOC: M LAB 08:42
PROVIDERS: ATTEND Registered Nurse
DX: R19.4 Change in bowel habit (principal); K21.9 Gastro-esophageal reflux disease without esophagitis; K76.0 Fatty (change of) liver, not elsewhere classified

== ENCOUNTER → 2024-07-04 | Outpatient (CLI) | payer BC | LOC: M LAB 10:30 | PROVIDERS: ATTEND Registered Nurse | DX: R79.89 Other specified abnormal findings of blood chemistry (principal) ==

== ENCOUNTER 2024-08-01 14:47 | Outpatient (CLI) | payer BC ==
[2024-08-01 15:10] VITALS: BP 142/85; O2SAT 97
[2024-08-01 15:45] VITALS: BP 117/80; O2SAT 98
[2024-08-01] MEDS ORDERED: TUMERIC PO (15:53)
[2024-08-01 16:10] VITALS: BP 134/86; O2SAT 98
== END 2024-08-01 16:15 | disposition home or self-care (01) ==
LOC: M INFU 14:47
PROVIDERS: ATTEND Internal Medicine Hematology & Oncology
DX: E83.119 Hemochromatosis, unspecified (principal)

== ENCOUNTER 2024-08-08 15:25 | Outpatient (CLI) | payer BC ==
[2024-08-08 15:25] VITALS: BP 168/77; O2SAT 97
[~2024-08-08 15:25] MED LIST changes: +TUMERIC PO
[2024-08-08 15:40] LABS: HEMATOCRIT 37.9 % (42.0-52.0); HEMOGLOBIN 13.6 g/dl (13.5-17.5); MEAN CORPUSCULAR HEMOGLOBIN 32.8 pg (27.0-33.0); MEAN CORPUSCULAR HGB CONC 35.9 g/dl (32.0-36.5); MEAN CORPUSCULAR VOLUME 91.3 fl (80.0-96.0); PLATELET COUNT, AUTOMATED 192 10^3/uL (150-450); RED BLOOD COUNT 4.15 10^6/uL (4.30-6.10); WHITE BLOOD COUNT 4.4 10^3/uL (4.0-10.0)
[2024-08-08 16:20] VITALS: BP 136/78; O2SAT 98
== END 2024-08-08 16:25 | disposition home or self-care (01) ==
LOC: M INFU 15:25
PROVIDERS: ATTEND Internal Medicine Hematology & Oncology
DX: E83.119 Hemochromatosis, unspecified (principal); M48.00 Spinal stenosis, site unspecified

== ENCOUNTER 2024-08-15 14:50 | Outpatient (CLI) | payer BC ==
[~2024-08-15] VITALS: Ht 177.8 cm; Wt 90.0 kg
[2024-08-15 15:15] LABS: HEMATOCRIT 34.9 % (42.0-52.0); HEMOGLOBIN 12.5 g/dl (13.5-17.5); MEAN CORPUSCULAR HEMOGLOBIN 32.7 pg (27.0-33.0); MEAN CORPUSCULAR HGB CONC 35.8 g/dl (32.0-36.5); MEAN CORPUSCULAR VOLUME 91.4 fl (80.0-96.0); PLATELET COUNT, AUTOMATED 188 10^3/uL (150-450); RED BLOOD COUNT 3.82 10^6/uL (4.30-6.10); WHITE BLOOD COUNT 4.5 10^3/uL (4.0-10.0)
[2024-08-15 16:10] VITALS: BP 127/83; O2SAT 98
== END 2024-08-15 16:10 ==
LOC: M INFU 14:50
PROVIDERS: ATTEND Internal Medicine Hematology & Oncology
DX: E83.119 Hemochromatosis, unspecified (principal); M48.00 Spinal stenosis, site unspecified

== ENCOUNTER 2024-08-29 15:30 | Outpatient (CLI) | payer BC ==
[~2024-08-29] VITALS: Ht 177.8 cm; Wt 90.9 kg
[2024-08-29 15:30] VITALS: BP 147/91; O2SAT 97
[2024-08-29 16:17] LABS: HEMATOCRIT 36.8 % (42.0-52.0); HEMOGLOBIN 13.1 g/dl (13.5-17.5); MEAN CORPUSCULAR HEMOGLOBIN 32.3 pg (27.0-33.0); MEAN CORPUSCULAR HGB CONC 35.6 g/dl (32.0-36.5); MEAN CORPUSCULAR VOLUME 90.9 fl (80.0-96.0); PLATELET COUNT, AUTOMATED 200 10^3/uL (150-450); RED BLOOD COUNT 4.05 10^6/uL (4.30-6.10); WHITE BLOOD COUNT 4.7 10^3/uL (4.0-10.0)
[2024-08-29 17:02] VITALS: BP 116/77; O2SAT 97
== END 2024-08-29 17:05 ==
LOC: M INFU 15:30
PROVIDERS: ATTEND Internal Medicine Hematology & Oncology
DX: E83.119 Hemochromatosis, unspecified (principal)

== ENCOUNTER → 2024-09-11 | Outpatient (REF) | payer BC ==
[~2024-09-11] MED LIST changes: -ROSU5TAB40 PO; +ROSU5TAB49 PO
[2024-09-11 14:48] LABS: EOS # 0.2 10^3/uL (0.0-0.5); EOS % 4.6 % (0.0-3.0); HEMATOCRIT 40.6 % (42.0-52.0); HEMOGLOBIN 13.9 g/dl (13.5-17.5); LYMPH # 1.5 10^3/uL (1.5-5.0); LYMPH % 35.5 % (24.0-44.0); MEAN CORPUSCULAR HEMOGLOBIN 32.9 pg (27.0-33.0); MEAN CORPUSCULAR HGB CONC 34.2 g/dl (32.0-36.5); MONO # 0.7 10^3/uL (0.0-0.8); MONO % 16.2 % (2.0-8.0); NEUTROPHILS # 1.8 10^3/uL (1.5-8.5); NEUTROPHILS % 42.5 % (36.0-66.0); PLATELET COUNT, AUTOMATED 198 10^3/uL (150-450); RED BLOOD COUNT 4.23 10^6/uL (4.30-6.10); WHITE BLOOD COUNT 4.1 10^3/uL (4.0-10.0)
== END ==
LOC: M LABWUC 13:04 → M LABDRWAD 13:04
PROVIDERS: ATTEND Internal Medicine Hematology & Oncology
DX: M48.00 Spinal stenosis, site unspecified (principal)

== ENCOUNTER 2024-09-12 15:45 | Outpatient (CLI) | payer BC ==
[~2024-09-12] VITALS: Ht 208.3 cm; Wt 90.9 kg
[2024-09-12 15:45] VITALS: BP 144/84; O2SAT 99
[2024-09-12 16:15] VITALS: BP 144/86; O2SAT 100
== END 2024-09-12 16:15 ==
LOC: M INFU 15:45
PROVIDERS: ATTEND Internal Medicine Hematology & Oncology
DX: E83.119 Hemochromatosis, unspecified (principal)

== ENCOUNTER → 2024-09-24 | Outpatient (REF) | payer BC ==
[2024-09-24 13:42] LABS: HEMATOCRIT 40.6 % (42.0-52.0); HEMOGLOBIN 13.9 g/dl (13.5-17.5); MEAN CORPUSCULAR HEMOGLOBIN 31.8 pg (27.0-33.0); MEAN CORPUSCULAR HGB CONC 34.2 g/dl (32.0-36.5); MEAN CORPUSCULAR VOLUME 92.9 fl (80.0-96.0); PLATELET COUNT, AUTOMATED 225 10^3/uL (150-450); RED BLOOD COUNT 4.37 10^6/uL (4.30-6.10)
== END ==
LOC: M LABWUC 13:13
PROVIDERS: ATTEND Internal Medicine Hematology & Oncology
DX: M48.00 Spinal stenosis, site unspecified (principal)

== ENCOUNTER 2024-09-26 15:30 | Outpatient (CLI) | payer BC ==
[2024-09-26 15:30] VITALS: BP 157/82; O2SAT 96
[2024-09-26 15:54] VITALS: BP 146/88; O2SAT 97
== END 2024-09-26 16:00 ==
LOC: M INFU 15:30
PROVIDERS: ATTEND Internal Medicine Hematology & Oncology
DX: E83.119 Hemochromatosis, unspecified (principal); M48.00 Spinal stenosis, site unspecified

== ENCOUNTER → 2024-10-08 | Outpatient (REF) | payer BC ==
[2024-10-08 13:20] LABS: HEMATOCRIT 39.2 % (42.0-52.0); MEAN CORPUSCULAR HEMOGLOBIN 31.6 pg (27.0-33.0); MEAN CORPUSCULAR HGB CONC 33.2 g/dl (32.0-36.5); MEAN CORPUSCULAR VOLUME 95.4 fl (80.0-96.0); PLATELET COUNT, AUTOMATED 200 10^3/uL (150-450); RED BLOOD COUNT 4.11 10^6/uL (4.30-6.10); WHITE BLOOD COUNT 3.4 10^3/uL (4.0-10.0)
== END ==
LOC: M LABDRWAD 12:46
PROVIDERS: ATTEND Internal Medicine Hematology & Oncology
DX: M48.00 Spinal stenosis, site unspecified (principal)

== ENCOUNTER → 2024-10-10 | Outpatient (CLI) | payer BC ==
[~2024-10-10] VITALS: Ht 177.8 cm; Wt 90.0 kg
[2024-10-10 14:45] VITALS: BP 130/78; O2SAT 97
[2024-10-10 15:08] VITALS: BP 129/76; O2SAT 98
== END ==
LOC: M INFU 14:35
PROVIDERS: ATTEND Internal Medicine Hematology & Oncology
DX: E83.119 Hemochromatosis, unspecified (principal)

== ENCOUNTER 2024-10-29 14:11 | Emergency (ER) | payer BC ==
[~2024-10-29] VITALS: Ht 177.8 cm; Wt 92.2 kg
[2024-10-29 15:08] LABS: EOS # 0.1 10^3/uL (0.0-0.5); EOS % 3.6 % (0.0-3.0); HEMATOCRIT 37.8 % (42.0-52.0); HEMOGLOBIN 13.3 g/dl (13.5-17.5); LYMPH # 1.3 10^3/uL (1.5-5.0); LYMPH % 34.9 % (24.0-44.0); MEAN CORPUSCULAR HEMOGLOBIN 31.8 pg (27.0-33.0); MEAN CORPUSCULAR HGB CONC 35.2 g/dl (32.0-36.5); MEAN CORPUSCULAR VOLUME 90.4 fl (80.0-96.0); MONO # 0.5 10^3/uL (0.0-0.8); MONO % 13.5 % (2.0-8.0); NEUTROPHILS # 1.8 10^3/uL (1.5-8.5); NEUTROPHILS % 46.7 % (36.0-66.0); PLATELET COUNT, AUTOMATED 206 10^3/uL (150-450); RED BLOOD COUNT 4.18 10^6/uL (4.30-6.10); WHITE BLOOD COUNT 3.8 10^3/uL (4.0-10.0)
[2024-10-29 15:25] LABS: CK-MB VALUE MASS < 1.0 NG/ML (<3.6)
[2024-10-29 15:27] LABS: BLOOD UREA NITROGEN 18 MG/DL (9-23); CARBON DIOXIDE LEVEL 29 MMOL/L (20-31); CHLORIDE LEVEL 108 MMOL/L (98-107); CREATININE FOR GFR 1.51 MG/DL (0.70-1.30); GLOMERULAR FILTRATION RATE 49.9 (>49); GLUCOSE, FASTING 103 MG/DL (74-106); POTASSIUM SERUM 4.2 MMOL/L (3.5-5.1); SODIUM LEVEL 144 MMOL/L (136-145)
[2024-10-29 15:28] LABS: CPK CREATINE PHOSPHOKINASE 165 U/L (46-171)
[2024-10-29 16:51] LABS: CK-MB VALUE MASS < 1.0 NG/ML (<3.6); CPK CREATINE PHOSPHOKINASE 153 U/L (46-171); MB/CK RELATIVE INDEX 0.65 (< OR =4)
[2024-10-29 17:02] VITALS: BP 125/79; TEMP 98.5; O2SAT 97
== END 2024-10-29 17:21 | disposition home or self-care (01) ==
LOC: M ED 14:11
DX: R07.89 Other chest pain (principal); I11.0 Hypertensive heart disease with heart failure; Z79.899 Other long term (current) drug therapy

== ENCOUNTER → 2024-10-30 | Outpatient (REF) | payer BC ==
[2024-10-30 12:48] LABS: BASO # 0.1 10^3/uL (0.0-0.2); BASO % 1.2 % (0.0-1.0); EOS # 0.2 10^3/uL (0.0-0.5); EOS % 3.7 % (0.0-3.0); HEMATOCRIT 41.7 % (42.0-52.0); LYMPH # 1.5 10^3/uL (1.5-5.0); MEAN CORPUSCULAR HEMOGLOBIN 31.1 pg (27.0-33.0); MEAN CORPUSCULAR HGB CONC 33.6 g/dl (32.0-36.5); MEAN CORPUSCULAR VOLUME 92.7 fl (80.0-96.0); MONO # 0.5 10^3/uL (0.0-0.8); NEUTROPHILS # 2.1 10^3/uL (1.5-8.5); NEUTROPHILS % 47.9 % (36.0-66.0); PLATELET COUNT, AUTOMATED 206 10^3/uL (150-450); WHITE BLOOD COUNT 4.3 10^3/uL (4.0-10.0)
== END ==
LOC: M LABDRWAD 12:21
PROVIDERS: ATTEND Internal Medicine Hematology & Oncology
DX: M48.00 Spinal stenosis, site unspecified (principal)

== ENCOUNTER → 2024-10-31 | Outpatient (REF) | payer BC ==
[2024-10-31 13:54] LABS: BLOOD UREA NITROGEN 17 MG/DL (9-23); CALCIUM LEVEL 9.7 MG/DL (8.3-10.6); CARBON DIOXIDE LEVEL 30 MMOL/L (20-31); CHLORIDE LEVEL 105 MMOL/L (98-107); GLOMERULAR FILTRATION RATE > 60.0 (>49); GLUCOSE, FASTING 78 MG/DL (74-106); POTASSIUM SERUM 4.8 MMOL/L (3.5-5.1); SODIUM LEVEL 143 MMOL/L (136-145)
== END ==
LOC: M SFHCADAM 10:46
PROVIDERS: ATTEND Physician Assistant
DX: N28.9 Disorder of kidney and ureter, unspecified (principal)

== ENCOUNTER → 2024-11-11 | Outpatient (CLI) | payer BC | LOC: M WHC 07:18 | PROVIDERS: ATTEND Physician Assistant | DX: R41.89 Other symptoms and signs involving cognitive functions and awareness (principal); R42 Dizziness and giddiness; I65.22 Occlusion and stenosis of left carotid artery ==

== ENCOUNTER → 2024-11-12 | Outpatient (REF) | payer BC ==
[2024-11-12 14:14] LABS: HEMATOCRIT 43.6 % (42.0-52.0); HEMOGLOBIN 14.8 g/dl (13.5-17.5); MEAN CORPUSCULAR HEMOGLOBIN 31.2 pg (27.0-33.0); MEAN CORPUSCULAR HGB CONC 33.9 g/dl (32.0-36.5); MEAN CORPUSCULAR VOLUME 91.8 fl (80.0-96.0); PLATELET COUNT, AUTOMATED 212 10^3/uL (150-450); RED BLOOD COUNT 4.75 10^6/uL (4.30-6.10); WHITE BLOOD COUNT 4.4 10^3/uL (4.0-10.0)
== END ==
LOC: M LAB REF 13:13
PROVIDERS: ATTEND Internal Medicine Hematology & Oncology
DX: M48.00 Spinal stenosis, site unspecified (principal)

== ENCOUNTER → 2024-11-19 | Outpatient (CLI) | payer BC | LOC: M RAD 06:32 | PROVIDERS: ATTEND Physician Assistant | DX: R41.89 Other symptoms and signs involving cognitive functions and awareness (principal); R42 Dizziness and giddiness ==

== ENCOUNTER → 2024-11-21 | Outpatient (REF) | payer BC ==
[2024-11-21 19:24] LABS: C REACTIVE PROTEIN QUANTITATIV < 0.50 MG/DL (<1.0)
[2024-11-21 19:28] LABS: FREE T4 1.15 NG/DL (0.89-1.76); THYROID STIMULATING HORMONE 1.639 uIU/ML (0.55-4.78)
[2024-11-21 19:29] LABS: FOLATE 17.02 NG/ML (>5.4); VITAMIN B12 LEVEL 1959 PG/ML (211-911)
[2024-11-21 19:52] LABS: HEMOGLOBIN A1c 5.1 % (4.0-6.0)
== END ==
LOC: M SFHCADAM 12:17
PROVIDERS: ATTEND Family Medicine
DX: R41.3 Other amnesia (principal); R26.89 Other abnormalities of gait and mobility

== ENCOUNTER → 2024-11-27 | Outpatient (REF) | payer BC ==
[2024-11-27 14:41] LABS: BASO # 0.1 10^3/uL (0.0-0.2); BASO % 1.4 % (0.0-1.0); EOS # 0.2 10^3/uL (0.0-0.5); EOS % 5.4 % (0.0-3.0); HEMATOCRIT 41.4 % (42.0-52.0); HEMOGLOBIN 14.1 g/dl (13.5-17.5); LYMPH # 1.5 10^3/uL (1.5-5.0); LYMPH % 42.2 % (24.0-44.0); MEAN CORPUSCULAR HEMOGLOBIN 31.3 pg (27.0-33.0); MEAN CORPUSCULAR HGB CONC 34.1 g/dl (32.0-36.5); MEAN CORPUSCULAR VOLUME 91.8 fl (80.0-96.0); MONO # 0.5 10^3/uL (0.0-0.8); NEUTROPHILS # 1.3 10^3/uL (1.5-8.5); PLATELET COUNT, AUTOMATED 192 10^3/uL (150-450); RED BLOOD COUNT 4.51 10^6/uL (4.30-6.10); WHITE BLOOD COUNT 3.5 10^3/uL (4.0-10.0)
== END ==
LOC: M LABDRWAD 13:37
PROVIDERS: ATTEND Internal Medicine Hematology & Oncology
DX: M48.00 Spinal stenosis, site unspecified (principal)

== ENCOUNTER → 2024-11-27 | Outpatient (REF) | payer BC | LOC: M LABDRWAD 13:34 | PROVIDERS: ATTEND Family Medicine | DX: R41.3 Other amnesia (principal); R26.89 Other abnormalities of gait and mobility ==

== ENCOUNTER → 2025-01-15 | Outpatient (REF) | payer BC ==
[2025-01-15 16:05] LABS: BASO % 0.9 % (0.0-1.0); EOS # 0.2 10^3/uL (0.0-0.5); EOS % 4.9 % (0.0-3.0); HEMATOCRIT 44.8 % (42.0-52.0); HEMOGLOBIN 15.3 g/dl (13.5-17.5); LYMPH # 1.6 10^3/uL (1.5-5.0); LYMPH % 35.8 % (24.0-44.0); MEAN CORPUSCULAR HEMOGLOBIN 30.2 pg (27.0-33.0); MEAN CORPUSCULAR HGB CONC 34.2 g/dl (32.0-36.5); MEAN CORPUSCULAR VOLUME 88.4 fl (80.0-96.0); MONO # 0.5 10^3/uL (0.0-0.8); MONO % 11.6 % (2.0-8.0); NEUTROPHILS # 2.1 10^3/uL (1.5-8.5); NEUTROPHILS % 46.6 % (36.0-66.0); PLATELET COUNT, AUTOMATED 196 10^3/uL (150-450); RED BLOOD COUNT 5.07 10^6/uL (4.30-6.10); WHITE BLOOD COUNT 4.5 10^3/uL (4.0-10.0)
== END ==
LOC: M LABDRWAD 13:19 → M LABWUC 13:19
PROVIDERS: ATTEND Internal Medicine Hematology & Oncology
DX: M48.00 Spinal stenosis, site unspecified (principal)

== ENCOUNTER → 2025-02-06 | Outpatient (CLI) | payer BC | LOC: M RAD 13:16 | PROVIDERS: ATTEND Family Medicine | DX: R10.9 Unspecified abdominal pain (principal); K57.90 Diverticulosis of intestine, part unspecified, without perforation or abscess without bleeding; Z90.49 Acquired absence of other specified parts of digestive tract ==

== ENCOUNTER → 2025-02-06 | Outpatient (REF) | payer BC | LOC: M SFHCADAM 11:27 | PROVIDERS: ATTEND Family Medicine | DX: Z53.9 Procedure and treatment not carried out, unspecified reason (principal) ==

== ENCOUNTER → 2025-02-10 | Outpatient (REF) | payer BC ==
[2025-02-10 14:05] LABS: APPEARANCE, URINE CLEAR (CLEAR); BACTERIA, URINE AUTO NEGATIVE (NEGATIVE); BILIRUBIN, URINE AUTO NEGATIVE (NEGATIVE); BLOOD, URINE BLOOD NEGATIVE (NEGATIVE); COLOR, URINE YELLOW (YELLOW); GLUCOSE, URINE (UA) AUTO NEGATIVE (NEGATIVE); KETONE, URINE AUTO NEGATIVE (NEGATIVE); LEUKOCYTE ESTERASE, URINE AUTO NEGATIVE (NEGATIVE); MUCUS, URINE SMALL (NEGATIVE); NITRITE, URINE AUTO NEGATIVE (NEGATIVE); PROTEIN, URINE AUTO NEGATIVE (NEGATIVE); RBC, URINE AUTO 0 /HPF (0-3); SQUAMOUS EPITHELIAL CELL UR AU 0 /HPF (0-6); UROBILINOGEN, URINE AUTO 0.2 mg/dL (0.0-2.0); WBC, URINE AUTO 1 /HPF (0-3)
[2025-02-10 14:05] LABS: HEMATOCRIT 41.5 % (42.0-52.0); HEMOGLOBIN 14.5 g/dl (13.5-17.5); MEAN CORPUSCULAR HEMOGLOBIN 30.7 pg (27.0-33.0); MEAN CORPUSCULAR HGB CONC 34.9 g/dl (32.0-36.5); MEAN CORPUSCULAR VOLUME 87.9 fl (80.0-96.0); PLATELET COUNT, AUTOMATED 172 10^3/uL (150-450); RED BLOOD COUNT 4.72 10^6/uL (4.30-6.10); WHITE BLOOD COUNT 4.7 10^3/uL (4.0-10.0)
[2025-02-10 14:30] LABS: IRON (FE) 164 UG/DL (65-175); PERCENT SATURATION 47.4 % (19.7-50.0); TOTAL IRON BINDING CAPACITY 346 UG/DL (250-425)
[2025-02-10 14:31] LABS: FERRITIN 124.3 NG/ML (10.5-307.3)
[2025-02-10 14:32] LABS: FREE T4 1.11 NG/DL (0.89-1.76); THYROID STIMULATING HORMONE 1.218 uIU/ML (0.55-4.78)
[2025-02-10 14:39] LABS: ALBUMIN 3.9 G/DL (3.2-5.2); ALKALINE PHOSPHATASE 60 U/L (40-129); ALT/SGPT 36 U/L (7.0-40); AST/SGOT 22 U/L (<34); BILIRUBIN,TOTAL 0.7 MG/DL (0.3-1.2); BLOOD UREA NITROGEN 17 MG/DL (9-23); CALCIUM LEVEL 8.8 MG/DL (8.3-10.6); CARBON DIOXIDE LEVEL 27 MMOL/L (20-31); CHLORIDE LEVEL 108 MMOL/L (98-107); CHOLESTEROL LEVEL 157 MG/DL (<200); CHOLESTEROL RISK RATIO 4.16 (<5); CREATININE FOR GFR 1.32 MG/DL (0.70-1.30); GLOMERULAR FILTRATION RATE > 60.0 (>49); GLUCOSE, FASTING 94 MG/DL (74-106); HDL CHOLESTEROL 37.7 MG/DL (>40); LDL CHOLESTEROL 89.7 MG/DL (<100); NON-HDL-C 119.3 MG/DL; POTASSIUM SERUM 4.4 MMOL/L (3.5-5.1); SODIUM LEVEL 143 MMOL/L (136-145); TOTAL PROTEIN 6.6 G/DL (5.7-8.2); TRIGLYCERIDES LEVEL 148 MG/DL (<150)
== END ==
LOC: M SFHCADAM 06:34
PROVIDERS: ATTEND Family Medicine
DX: R10.9 Unspecified abdominal pain (principal); Z87.39 Personal history of other diseases of the musculoskeletal system and connective tissue; E83.110 Hereditary hemochromatosis; E78.5 Hyperlipidemia, unspecified

== ENCOUNTER → 2025-03-12 | Outpatient (REF) | payer BC ==
[2025-03-12 14:02] LABS: BASO % 0.8 % (0.0-1.0); EOS # 0.2 10^3/uL (0.0-0.5); EOS % 3.1 % (0.0-3.0); HEMATOCRIT 38.1 % (42.0-52.0); HEMOGLOBIN 13.3 g/dl (13.5-17.5); LYMPH # 1.5 10^3/uL (1.5-5.0); LYMPH % 31.4 % (24.0-44.0); MEAN CORPUSCULAR HEMOGLOBIN 31.1 pg (27.0-33.0); MEAN CORPUSCULAR HGB CONC 34.9 g/dl (32.0-36.5); MONO # 0.6 10^3/uL (0.0-0.8); MONO % 12.9 % (2.0-8.0); NEUTROPHILS # 2.5 10^3/uL (1.5-8.5); PLATELET COUNT, AUTOMATED 199 10^3/uL (150-450); RED BLOOD COUNT 4.28 10^6/uL (4.30-6.10); WHITE BLOOD COUNT 4.9 10^3/uL (4.0-10.0)
[2025-03-12 14:08] LABS: ALBUMIN 3.9 G/DL (3.2-5.2); BILIRUBIN,TOTAL 0.5 MG/DL (0.3-1.2); CALCIUM LEVEL 8.8 MG/DL (8.3-10.6); CREATININE FOR GFR 1.24 MG/DL (0.70-1.30); GLOMERULAR FILTRATION RATE 64.9 (>49); PERCENT SATURATION 33.3 % (19.7-50.0); POTASSIUM SERUM 4.7 MMOL/L (3.5-5.1); TOTAL PROTEIN 6.8 G/DL (5.7-8.2)
[2025-03-12 14:12] LABS: FERRITIN 130.8 NG/ML (10.5-307.3)
== END ==
LOC: M SFHCADAM 09:02
PROVIDERS: ATTEND Physician Assistant
DX: R00.2 Palpitations (principal); I11.9 Hypertensive heart disease without heart failure; E83.110 Hereditary hemochromatosis

== ENCOUNTER 2025-03-16 15:55 | Emergency (ER) | payer OTHER, BC ==
[~2025-03-16] VITALS: Ht 177.8 cm; Wt 90.9 kg
[2025-03-16 20:04] VITALS: BP 151/88; TEMP 98; O2SAT 99
== END 2025-03-16 21:09 | disposition left against medical advice (07) ==
LOC: M ED 15:55
DX: Z53.21 Procedure and treatment not carried out due to patient leaving prior to being seen by health care provider (principal)

== ENCOUNTER → 2025-05-23 | Outpatient (CLI) | payer BC ==
[~2025-05-23] MED LIST changes: -FLAX10005 PO; +FLAX1CAP6 PO
[2025-05-23 10:10] LABS: PLATELET COUNT, AUTOMATED 187 10^3/uL (150-450)
[2025-05-23 10:23] LABS: ESTIMATED AVERAGE GLUCOSE 100.0 MG/DL (60-110)
[2025-05-23 10:38] LABS: PSA SCREENING 0.71 NG/ML (< 4.00)
[2025-05-23 10:43] LABS: ALT/SGPT 27.0 U/L (7.0-40); AST/SGOT 24.0 U/L (<34); CALCIUM LEVEL 9.1 MG/DL (8.3-10.6); CARBON DIOXIDE LEVEL 28.0 MMOL/L (20-31); CHLORIDE LEVEL 106.0 MMOL/L (98-107); CHOLESTEROL LEVEL 146.0 MG/DL (<200); CHOLESTEROL RISK RATIO 3.94 (<5); CREATININE FOR GFR 1.35 MG/DL (0.70-1.30); GLOMERULAR FILTRATION RATE 58.6 (>49); LDL CHOLESTEROL 81.4 MG/DL (<100); NON-HDL-C 109.0 MG/DL; POTASSIUM SERUM 4.9 MMOL/L (3.5-5.1); SODIUM LEVEL 143.0 MMOL/L (136-145); TRIGLYCERIDES LEVEL 138.0 MG/DL (<150)
== END ==
LOC: M LAB 08:04
PROVIDERS: ATTEND Family Medicine
DX: E78.5 Hyperlipidemia, unspecified (principal); Z12.5 Encounter for screening for malignant neoplasm of prostate; Z87.39 Personal history of other diseases of the musculoskeletal system and connective tissue; E83.110 Hereditary hemochromatosis; Z13.1 Encounter for screening for diabetes mellitus

== ENCOUNTER → 2025-06-10 | Outpatient (REF) | payer BC ==
[2025-06-10 14:34] LABS: VITAMIN B12 LEVEL 747 PG/ML (211-911)
[2025-06-12 21:52] LABS: VITAMIN E(ALPHA TOCOPHEROL) 16.7 mg/L (5.7-19.9); VITAMIN E(GAMMA TOCOPHEROL) < 1.0 mg/L (<=4.3)
== END ==
LOC: M LABWUC 13:09
PROVIDERS: ATTEND Psychiatry & Neurology Neurology
DX: E53.8 Deficiency of other specified B group vitamins (principal); R51.9 Headache, unspecified; R41.3 Other amnesia

== ENCOUNTER → 2025-07-02 | Outpatient (REF) | payer BC ==
[2025-07-02 13:37] LABS: BASO # 0.1 10^3/uL (0.0-0.2); BASO % 1.4 % (0.0-1.0); EOS # 0.1 10^3/uL (0.0-0.5); EOS % 3.6 % (0.0-3.0); LYMPH # 1.4 10^3/uL (1.5-5.0); LYMPH % 36.9 % (24.0-44.0); MONO # 0.5 10^3/uL (0.0-0.8); MONO % 12.8 % (2.0-8.0); NEUTROPHILS # 1.7 10^3/uL (1.5-8.5); NEUTROPHILS % 45.0 % (36.0-66.0); PLATELET COUNT, AUTOMATED 204 10^3/uL (150-450)
== END ==
LOC: M LABWUC 12:39
PROVIDERS: ATTEND Internal Medicine Hematology & Oncology
DX: E83.119 Hemochromatosis, unspecified (principal)

== ENCOUNTER → 2025-07-21 | Outpatient (REF) | payer BC | LOC: M SFHCADAM 10:27 | PROVIDERS: ATTEND Family Medicine | DX: R82.90 Unspecified abnormal findings in urine (principal) ==

== ENCOUNTER → 2025-07-23 | Outpatient (REF) | payer BC ==
[2025-07-23 14:11] LABS: APPEARANCE, URINE CLEAR (CLEAR); BACTERIA, URINE AUTO NEGATIVE (NEGATIVE); BILIRUBIN, URINE AUTO NEGATIVE (NEGATIVE); BLOOD, URINE BLOOD NEGATIVE (NEGATIVE); GLUCOSE, URINE (UA) AUTO NEGATIVE (NEGATIVE); KETONE, URINE AUTO NEGATIVE (NEGATIVE); LEUKOCYTE ESTERASE, URINE AUTO NEGATIVE (NEGATIVE); NITRITE, URINE AUTO NEGATIVE (NEGATIVE); PROTEIN, URINE AUTO NEGATIVE (NEGATIVE); RBC, URINE AUTO 0 /HPF (0-3); SPECIFIC GRAVITY URINE AUTO 1.016 (1.002-1.035); SQUAMOUS EPITHELIAL CELL UR AU 0 /HPF (0-6); UROBILINOGEN, URINE AUTO 0.2 mg/dL (0.0-2.0); WBC, URINE AUTO 1 /HPF (0-3)
== END ==
LOC: M SFHCPLAZ 12:13
PROVIDERS: ATTEND Family Medicine
DX: R82.90 Unspecified abnormal findings in urine (principal)

== ENCOUNTER → 2025-08-20 | Outpatient (REF) | payer BC ==
[2025-08-20 14:08] LABS: BASO # 0.0 10^3/uL (0.0-0.2); BASO % 1.0 % (0.0-1.0); EOS # 0.1 10^3/uL (0.0-0.5); EOS % 3.6 % (0.0-3.0); LYMPH # 1.5 10^3/uL (1.5-5.0); LYMPH % 37.9 % (24.0-44.0); MONO # 0.5 10^3/uL (0.0-0.8); MONO % 13.5 % (2.0-8.0); NEUTROPHILS # 1.7 10^3/uL (1.5-8.5); NEUTROPHILS % 43.7 % (36.0-66.0); PLATELET COUNT, AUTOMATED 206 10^3/uL (150-450)
== END ==
LOC: M LABDRWAD 13:11
PROVIDERS: ATTEND Physician Assistant
DX: E83.119 Hemochromatosis, unspecified (principal)

== ENCOUNTER → 2025-09-09 | Outpatient (CLI) | payer BC, OTHER | LOC: M ADAMS 08:37 | PROVIDERS: ATTEND Family Medicine | DX: R10.A1 Flank pain, right side (principal) ==

== ENCOUNTER → 2025-09-29 | Outpatient (REF) | payer OTHER ==
[2025-09-29 13:40] LABS: BASO # 0.1 10^3/uL (0.0-0.2); BASO % 1.2 % (0.0-1.0); EOS # 0.1 10^3/uL (0.0-0.5); EOS % 2.6 % (0.0-3.0); LYMPH # 1.6 10^3/uL (1.5-5.0); LYMPH % 37.7 % (24.0-44.0); MONO # 0.5 10^3/uL (0.0-0.8); MONO % 12.6 % (2.0-8.0); NEUTROPHILS # 1.9 10^3/uL (1.5-8.5); NEUTROPHILS % 45.7 % (36.0-66.0); PLATELET COUNT, AUTOMATED 236 10^3/uL (150-450)
== END ==
LOC: M LABDRWAD 13:16
PROVIDERS: ATTEND Physician Assistant
DX: E83.119 Hemochromatosis, unspecified (principal)

== ENCOUNTER → 2025-10-15 | Outpatient (CLI) | payer OTHER | LOC: M RAD 08:44 | PROVIDERS: ATTEND Family Medicine | DX: Z86.79 Personal history of other diseases of the circulatory system (principal) ==